=== PATIENT | female | born 1990 | race Caucasian/White ===

== ENCOUNTER 2024-11-22 04:00 | Day surgery (SDC) | payer OTHER ==
[2024-11-22] VITALS (209 sets, daily range): BP systolic 87–154; BP diastolic 54–115
[~2024-11-22] VITALS: Ht 165.1 cm; Wt 91.0 kg
--- NOTE | 2024-11-22 07:00 | NUR ---
Arrival & Pre-treatment Patient arrived to the ANR suite, identification and demographics confirmed. Patient to room 8, AAO, ambulatory, vitals obtained, ID/allergy/fall bands placed, changed into hospital gown, FOX hose, and non-slip socks. Procedure and timeline explained for treatment and discharge. All questions answered and the patient presents no concerns at this time.
[2024-11-22] MEDS ORDERED: ALBUTEROL SULFATE 2.5 MG VIAL IN PRN (07:30)
[2024-11-22] MEDS ORDERED: PANTOPRAZOLE SODIUM Sesquihydr 40 MG/TAB PO PRN (07:30)
[2024-11-22] MEDS ORDERED: FAMOTIDINE 20 MG/TAB PO PRN (07:30)
[2024-11-22] MEDS ORDERED: CYANOCOBALAMIN 500 MCG/TAB ( B12) PO PRN (07:30)
[2024-11-22] MEDS ORDERED: diazePAM 5 MG/TAB PO PRN ×2 (07:30→08:30)
[2024-11-22] MEDS ORDERED: cloNIDine HCL 0.1 MG/TAB PO PRN (07:30)
[2024-11-22] MEDS ORDERED: SODIUM CHLORIDE 0.9% 1,000 ML IV PRN ×3 (07:30→14:05)
[2024-11-22] MEDS ORDERED: SCOPOLAMINE 1.5 MG DIS TD PRN (07:30)
[2024-11-22] MEDS ORDERED: DEXMEDETOMIDINE HCL IN SODIUM 100 ML IV SCH (07:30)
[2024-11-22] MEDS ORDERED: LACTATED RINGER'S 1,000 ML IV PRN ×2 (07:30→09:05)
--- NOTE | 2024-11-22 07:45 | NUR ---
Dr. Irwin telephoned with patient intake information including usage, dose, last dose/time taken and initial vital signs. Patient history and allergies reviewed with MD. Orders received for 10 + 5 PRN mg PO Valium and 0.3 mg PO Clonidine now. Will reassess per protocol in 1.5 hours and update MD with assessment and vitals. Patient medicated per MD orders. In addition to Clonidine and Valium, patient received 1000 mcg B12 PO, 20 mg Pepcid PO, and Scopolamine TD patch. Medication indication and education provided prior to administration.
[2024-11-22] MEDS ORDERED: ASCORBIC ACID 4,000 MG in SODIUM CHLORIDE 0.9% 1,000 ML IV SCH (08:00)
[2024-11-22 08:24] LABS: BASO% 0.4 % (0-3); EOS% 2.1 % (0-8); HEMATOCRIT 41.1 % (37.0-47.0); HEMOGLOBIN 13.3 g/dl (12.0-16.0); IMMATURE GRANULOCYTES 0.1 % (0.0-5.0); LYMPH% 33.2 % (15-41); MEAN CELL VOLUME 93.4 fL CALC (80.0-100.0); MEAN CORPUSCULAR HGB 30.2 pG CALC (26.0-32.0); MEAN CORPUSCULAR HGB CONC 32.4 g/dL CAL (32.0-36.0); MONO% 6.7 % (2-13); NEUT# 3.85 thou/uL (2.00-7.15); NEUT% 57.5 % (42-76); RED BLOOD COUNT 4.4 mill/uL (4.20-5.60); RED CELL DISTRI WIDTH 13.3 % (11.5-15.5)
[2024-11-22 08:32] LABS: ALBUMIN 4.1 g/dL (3.2-5.0); BILIRUBIN, TOTAL 0.4 mg/dL (0.02-1.3); CREATININE 0.7 mg/dL (0.5-1.0); POTASSIUM 4.2 mmol/l (3.5-5.1)
[2024-11-22] MEDS ORDERED: STERILE WATER FOR IRRIGATION 1,000 ML BTL IR PRN (09:05)
[2024-11-22] MEDS ORDERED: OCTREOTIDE ACETATE 100 MCG/VIAL SDV SC PRN (09:05)
[2024-11-22] MEDS ORDERED: ONDANSETRON HCl 4 MG/2 ML SDV IV PRN ×3 (09:05→19:00)
[2024-11-22] MEDS ORDERED: POTASSIUM CHLORIDE 20 MEQ/100 ML BAG IV PRN (09:05)
[2024-11-22] MEDS ORDERED: cloNIDine HYDROCHLORIDE 100 MCG/ML 10 ML INJ IV PRN (09:05)
[2024-11-22] MEDS ORDERED: ROCURONIUM BROMIDE 10 MG/ML 5 ML VIAL IV PRN (09:05)
[2024-11-22] MEDS ORDERED: THIAMINE HCL 100 MG/ML 2ML VIAL IV PRN (09:05)
[2024-11-22] MEDS ORDERED: DiphenhydrAMINE HCL 50 MG/ML SDV IV PRN (09:05)
[2024-11-22] MEDS ORDERED: MIDAZOLAM HCL 2 MG/2 ML VIAL IV PRN ×3 (09:05→14:10)
[2024-11-22] MEDS ORDERED: NALTREXONE HCL 50 MG/TAB VT PRN (09:05)
[2024-11-22] MEDS ORDERED: SUCCINYLCHOLINE CHLORIDE 20 MG/ML 10ML VIAL IV PRN (09:05)
[2024-11-22] MEDS ORDERED: MAGNESIUM SULFATE HEPTAHYDRATE 100 ML IV PRN (09:05)
[2024-11-22] MEDS ORDERED: LIDOCAINE HCL 1% (10MG/ML) 100 MG/10 ML MDV IV PRN (09:05)
[2024-11-22] MEDS ORDERED: LIDOCAINE HCL 1% (10MG/ML) 100 MG/10 ML MDV VT PRN ×2 (09:05)
[2024-11-22] MEDS ORDERED: PROPOFOL 100 ML IV PRN (09:05)
[2024-11-22] MEDS ORDERED: PROPOFOL 10 MG/ML 100ML VIAL IV PRN (09:05)
[2024-11-22] MEDS ORDERED: cloNIDine HCL 0.1 MG/TAB VT PRN (09:05)
[2024-11-22] MEDS ORDERED: diazePAM 5 MG/TAB VT PRN (09:05)
[2024-11-22] MEDS ORDERED: AMBIEN10 MG PO (09:23)
[2024-11-22] MEDS ORDERED: ADDERALL20 MG PO (09:24)
[2024-11-22] MEDS ORDERED: NEXPLANON68 MG SC (09:25)
--- NOTE | 2024-11-22 09:30 | NUR ---
Patient resting comfortably in bed. Easily aroused, maintains focus, and drifts back to sleep. No signs of active withdrawal or distress noted at this time. Continuous SPO2, rhythm, and respiratory monitoring initiated. IVF @ 250 mL/HR, room air, VSS.
--- NOTE | 2024-11-22 11:03 | NUR ---
Induction Note Patient to ANR procedure room. Time out performed at 1103. Patient placed on monitors, Amalia hugger, bilateral wrist restraints applied for ET tube protection. Versed 5mg given IV push at 1120 Tourniquet applied to right arm Lidocaine 100mg given at 1121 IV push followed by Rocoronium 10mg at 1122 IV push and held for 90 seconds. Propofol bolus of 120mg given at 1124 IV push. Succinylcholine 80mg given IV push at 1125. Smooth intubation with 7.5 ETT. Positive CO2. Positive Auscultation for air exchange. Patient placed on ventilator for spontaneous ventilation. Placed on Propofol IV drip at 1126. OG inserted. Positive air on auscultation. Positive gastric content. Stomach washed at this time.
--- NOTE | 2024-11-22 11:45 | NUR ---
OG close note Stomach washed at this time. Naltrexone 50 mg with Clonidine 0.1 mg via OG tube. OG will be clamped for 45 minutes.
--- NOTE | 2024-11-22 12:30 | NUR ---
OG open note OG open at this time. Gastric content draining into drainage bag. OG to drain for 45 minutes. Propofol will be titrated down based on patient.
[2024-11-22] MEDS ORDERED: CLONIDINE0.1 MG PO (13:12)
[2024-11-22] MEDS ORDERED: NALTREXONE50 MG PO (13:12)
[2024-11-22] MEDS ORDERED: KLONOPIN2 MG PO (13:12)
--- NOTE | 2024-11-22 13:15 | NUR ---
OG close note Stomach washed at this time. Naltrexone 50 mg with Clonidine 0.2 mg via OG tube. OG will be clamped for 45 minutes.
[2024-11-22] MEDS ORDERED: clonazePAM 1 MG/TAB PO PRN (14:05)
--- NOTE | 2024-11-22 14:45 | NUR ---
OG close note Stomach washed at this time. Naltrexone 25 mg with Clonidine 0.3 mg via OG tube. OG will be clamped for 45 minutes.
--- NOTE | 2024-11-22 16:15 | NUR ---
OG close note Stomach washed at this time. Naltrexone 12.5 mg with Clonidine 0.2 mg via OG tube. OG will be clamped for 45 minutes.
--- NOTE | 2024-11-22 16:45 | NUR ---
OG open note OG open at this time. Gastric content draining into drainage bag. OG to drain Propofol will be titrated down based on patient.
--- NOTE | 2024-11-22 17:00 | NUR ---
Extubation note Closing medications given Benadryl 50mg IV push, Decadron 10mg IV push,Magnesium 4 grams IV, Zofran 8mg IV push, Octreotide 100mcg SC. Stomach washed out prior to extubation. Suctioned gastric content. OG removed. Patient extubated. Propofol Discontinued. Wrist restraints removed. Amalia hugger Removed. See ANR Moderate sedate recovery record for further notes and assessment.
--- NOTE | 2024-11-22 18:03 | NUR ---
PATIENTS , SUSU CALLED WITH UPDATE. SUSU INFORMED THAT HE WILL GET A CALL FROM HAMILTON TARANGO RN TOMORROW MID MORNING WITH AN UPDATE AND TIME OF D/C HOME.
--- NOTE | 2024-11-22 18:37 | NUR ---
TRANSER NOTE Patient transferred to medical-surgical unit room. Report given to at bedside. Head to toe assessment, treatment, medications, I/O, IV access reviewed with RN. All questions answered. IVF to continue at 100 ml/hr, NC @ 4L, no adventitious breath sounds. Safety precautions in place, bed locked and in lowest position, call light in reach. Handoff of care at the time this note.
[2024-11-22] MEDS ORDERED: HALOPERIDOL LACTATE 5 MG/ML SDV IV PRN (19:00)
[2024-11-22] MEDS ORDERED: ACETAMINOPHEN 500 MG TAB PO PRN (19:00)
[2024-11-22] MEDS ORDERED: ACETAMINOPHEN 1,000 MG/100 ML VIAL IV PRN (19:00)
[2024-11-22] MEDS ORDERED: KETOROLAC TROMETHAMINE 30 MG/ML SDV IV PRN (19:00)
[2024-11-22] MEDS ORDERED: PROMETHAZINE HCL 25 MG in SODIUM CHLORIDE 0.9% 50 ML IV PRN (19:00)
[2024-11-22] MEDS ORDERED: PROMETHAZINE HCL 12.5 MG in SODIUM CHLORIDE 0.9% 50 ML IV PRN (19:00)
--- NOTE | 2024-11-22 20:00 | NUR ---
RECEIVED REPORT FROM ANR NURSE. PT NOTED LAYING IN BED SUPINE, MILD TOSSING AND TURNING. AROUSABLE TO SPEECH, A/OX2 TO SELF AND PLACE. PT STATES "FEELING LIKE CRAP" INFORMED OF NORMAL SYMPTOMS POST PROCEDURE. ENCOURAGED REST TO HELP WITH RECOVERY. NURSING ASSESSMENT COMPLETED. IV SITES APPEAR HEALTHY AND INTACT WITH IVF RUNNING PER EMAR. EDUCATED ON POC AND MED SCHEDULE. VSS. NO S/S OF DISTRESS. BED ALARM ON AND SAFETY PRECAUTIONS IN PLACE.
--- NOTE | 2024-11-22 20:45 | NUR ---
STAFF ASSISTED PT TO BSC, PT WAS ABLE TO KEEP EYES OPEN AND STEADY GAIT. VOIDED W/O DIFFICULTY AND ASSISTED BACK INTO BED. PT WAS C/O RESTLESSNESS. ADMINISTERED PRN MEDICATION PER EMAR AND ASSISTED WITH GETTING PT COMFORTABLE IN BED TO PROMOTE REST. IVF RUNNING PER EMAR, NO S/S OF DISTRESS. BED ALARM ON AND SAFETY PRECAUTIONS IN PLACE.
[2024-11-22] MEDS ORDERED: PATIENT' OWN MED CONTROLLED 1 EA DOSE IV PRN (21:00)
[2024-11-22] MEDS ORDERED: cloNIDine HCL 0.1 MG/TAB PO SCH (23:00)
--- NOTE | 2024-11-23 | NUR ---
ADMINSITERED SCHEDULED MEDS PER EMAR AND PT TOLERATED WELL. PT DENIED ANY N/V/P BUT DID REQUEST "SOMETHING FOR SLEEP" INFOMRED ON MEDS ADMINSITERED TO HELP WITH RELAXATION AND REST. PT IS NOW LAYING IN BED ON LT SIDE, RESTING COMFORTABLY WITH EYES CLOSED. IVF RUNNING PER EMAR. VSS. NO S/S OF DISTRESS. BED ALARM ON AND SAFETY PRECAUTIONS IN PLACE.
[2024-11-23 03:43] VITALS: BP 153/73
[2024-11-23] MEDS ORDERED: NALTREXONE HCL 50 MG/TAB PO SCH (04:00)
[2024-11-23] MEDS ORDERED: clonazePAM 1 MG/TAB PO PRN ×2 (04:00→08:00)
[2024-11-23] MEDS ORDERED: cloNIDine HCL 0.1 MG/TAB PO PRN (04:00)
--- NOTE | 2024-11-23 04:00 | NUR ---
ADMISNITERED SCHEDULED MEDS PER EMAR. PT TOLERATED WELL. STAFF AND PRECISION INSTRUMENT MAKER AND REPAIRER ASSISTED PT WITH AMBULATING TO BATHROOM, GAIT STEADY. PT WAS ABLE TO VOID AND HAVE BM. ASSISTED BACK INTO BED. PT DENIES ANY N/V/P AND STATES "FEELING ALOT BETTER." ENCOURAGED PT TO CONTINUE TO REST FOR RECOVERY. PT LAYING IN BED SUPINE, IVF RUNNING PER EMAR. VSS. NO S/S OF DISTRESS. BED ALARM ON AND SAFETY PRECAUTIONS IN PLACE.
[2024-11-23 05:32] LABS: BASO% 0.2 % (0-3); HEMATOCRIT 38.2 % (37.0-47.0); HEMOGLOBIN 12.8 g/dl (12.0-16.0); IMMATURE GRANULOCYTES 0.2 % (0.0-5.0); LYMPH% 13.9 % (15-41); MEAN CELL VOLUME 91.2 fL CALC (80.0-100.0); MEAN CORPUSCULAR HGB 30.5 pG CALC (26.0-32.0); MEAN CORPUSCULAR HGB CONC 33.5 g/dL CAL (32.0-36.0); MONO% 3.4 % (2-13); NEUT# 7.92 thou/uL (2.00-7.15); NEUT% 82.3 % (42-76); RED BLOOD COUNT 4.19 mill/uL (4.20-5.60)
[2024-11-23 05:55] LABS: ALBUMIN 4.1 g/dL (3.2-5.0); CREATININE 0.7 mg/dL (0.5-1.0); MAGNESIUM 2.1 mg/dL (1.6-2.3); TOTAL PROTEIN 6.9 g/dL (6.3-8.2)
[2024-11-23 06:02] LABS: BILIRUBIN, TOTAL 0.8 mg/dL (0.02-1.3)
[2024-11-23 07:33] VITALS: BP 147/89
[2024-11-23] MEDS ORDERED: PANTOPRAZOLE SODIUM Sesquihydr 40 MG/TAB PO SCH (08:00)
[2024-11-23] MEDS ORDERED: cloNIDine HCL 0.1 MG/TAB PO SCH (08:00)
[2024-11-23] MEDS ORDERED: ACETAMINOPHEN 325 MG/TAB PO SCH (08:00)
--- NOTE | 2024-11-23 08:40 | NUR ---
PATIENT RESTING IN BED; ROOM AIR; BREATHING UNLABORED AND EVEN; DENIED ANY PAIN ; DENIED ANY N/D/V AT THIS TIME; TOLERATED HER MEDICATIONS; NO S.S OF DISTRESS; PERSONAL ITEMS IN ANR LOCKER; IV SITE CLEAN AND INTACT RUNNING WITH NS @150; LABS AND STATUS OF PATIENT CALLED TO PROVIDER; ENCOURAGED PATIENT TO TRY TO EAT CALL LIGHT WITHIN REACH, VERBALIZED UNDERSTANDING ON HOW TO USE, BED IN LOWEST POSTION SAFETY MEASURES IN PLACE
[2024-11-23] MEDS ORDERED: ACETAMINOPHEN 500 MG TAB PO PRN (09:00)
[2024-11-23] MEDS ORDERED: MAGNESIUM OXIDE 400 MG/TAB PO PRN (09:00)
[2024-11-23] MEDS ORDERED: Cholecalciferol 2,000 UNIT/TAB PO PRN (09:00)
--- NOTE | 2024-11-23 11:01 | NUR ---
PATIENT IV WAS PULLED OUT WHEN MOVIMG IN BED, OFFERED TO DO NEW IV PATIENT DECLINED, AGRRED TO DRINK MORE FLUIDS
[2024-11-23] MEDS ORDERED: BISMUTH SUBSALICYLATE 262 MG CHW PO PRN (12:05)
--- NOTE | 2024-11-23 12:45 | NUR ---
PATIENT A/O X3; ROOM AIR; BREATHING UNLABORED AND EVEN; DENIED ANY PAIN; DENIED ANY N/D/V AT THIS TIME; NO S.S OF DISTRESS; NO IV SITE; CONTINUE TO DRINK; PERSONAL ITEMS IN ANR LOCKER; ENCOURAGED TO EAT LUNCH; STATES SHE WILL TAKE A SHOWER AFTER 1300; PROVIDER UPDATED WITH STATUS OF PATIENT;
--- NOTE | 2024-11-23 13:15 | NUR ---
patient is currently in shower at this time
--- NOTE | 2024-11-23 15:09 | NUR ---
IV site discontinued, cath intact. No edema , no redness, voices no discomfort. Discharge instructions given. Patient verbalizes understanding of same. Discharged in stable condition via Ambulatory to Home with family. All belongings sent with pt.
== END 2024-11-23 15:03 | disposition home or self-care (01) | DRG 897 ==
LOC: ANR 04:00 → MS2 04:00 → ANR 08:00
PROVIDERS: ATTEND Anesthesiology
DX: F11.20 Opioid dependence, uncomplicated (principal)
CPT/HCPCS: J1200; J2354; J2405; J2550; J2704; J3475; J3480; J3490